=== PATIENT | female | born 1960 | race Caucasian/White ===

== ENCOUNTER 2016-09-22 13:04 | Emergency (ER) ==
[2016-09-22 13:21] VITALS: BP 140/86
--- NOTE | 2016-09-22 14:00 | PROVIDER DOCUMENTATION ---
HPI-EENT General - General Chief Complaint: Sinus Pain Stated Complaint: SINUS Time Seen by Provider: 09/22/16 13:35 Source: patient Allergies/Adverse Reactions: Patient Allergies Allergy/AdvReac Type Severity Reaction Status Date / Time Penicillins Allergy Severe SWELLING Verified 06/02/16 12:15 Home Medications: Buspirone HCl 1 mg PO BID 06/01/12 Clopidogrel [Plavix] 75 mg PO DAILY 06/01/12 Escitalopram [Lexapro] 20 mg PO DAILY 06/01/12 Furosemide [Lasix] 40 mg PO DAILY 06/01/12 Losartan [Cozaar] 50 mg PO DAILY 06/01/12 Oxcarbazepine 600 mg PO BID 06/01/12 Potassium Chloride [Klor-Con M20] 20 meq PO DAILY 06/01/12 Theophylline Anhydrous [Theophylline] 200 mg PO BID 06/01/12 Trazodone [Desyrel] 150 mg PO QHS 06/01/12 Alprazolam [Xanax] 1 mg PO TID 05/06/14 Carisoprodol [Soma] 350 mg PO DAILY PRN PRN 05/06/14 Hydrocodone/Acetaminophen [[place] 5-325 Tablet] 1 each PO Q6H PRN PRN 01/07/15 Carisoprodol 350 mg PO DAILY 04/07/15 - History of Present Illness-EENT General Nature of Presenting Problem: Reports bialteral sinus pain and pressure x 2week ago with sorethroat/. Had sinus congestion x 2 months ago. reports nausea 30 minutes ago. EENT Location: reports: nose, throat Quality of Pain: reports: aching Severity: reports: moderate Onset/Duration: reports: other (2 weeks) Timing: reports: still present Prearrival Treatment: Initiated no prearrival treatment Associated Symptoms: reports: nasal congestion/drainage, sinus infection, sore throat Locality of Occurance: Home Similar Symptoms Previously?: Yes Recently seen or treated by another doctor?: No Review of Systems - Adult - REVIEW OF SYSTEMS - ADULT Constitutional: denies: chills, fever, fatique Eyes: reports: no symptoms reported Ears, Nose, Mouth & Throat: reports: sinus problem, throat pain. denies: ear pain Cardiovascular: denies: chest pain, irregular heart rate, orthopnea Respiratory: reports: no symptoms reported Gastrointestinal: reports: no symptoms reported Genitourinary: reports: no symptoms reported Musculoskeletal: reports: no symptoms reported Integumentary: reports: no symptoms reported Neurological: reports: no symptoms reported Psychiatric: reports: no symptoms reported Endocrine: reports: no symptoms reported Hematologic/Lymphatic: reports: no symptoms reported Allergic/Immunologic: reports: no symptoms reported All Other Systems: Reviewed and Negative Past History - Adult - PAST MEDICAL HISTORY-ADULT Review of Records: reports: Nursing Assessment Review, Medications Reviewed Major Childhood Illnesses: reports: denies history Cardiovascular: reports: CHF, HTN Respiratory: reports: asthma Neurological: reports: CVA, TIA Psychiatric: reports: bipolar - PRIOR SURGERIES/PROCEDURES Surgical/Procedure History: reports: cholecystectomy, BTL - IMMUNIZATION STATUS Childhood Immunizations: See Nurse Assessment Flu Vaccine: See Nurse Assessment - FAMILY HISTORY Family History: reviewed, not pertinent - SOCIAL HISTORY Smoking: other (Former smoker) Substance Use: none/never Physical Exam- EENT - Physical Exam EENT Initial Vital Signs Reviewed: Yes General Appearance: appears well, alert, no apparent distress Eye Exam: bilateral eye: normal inspection, PERRL, EOMI Ear Exam: bilateral ear: auricle normal, canal normal, TM normal Nasal Exam: sinus tenderness (frontal and maxillary) Throat Exam: normal mouth inspection, pharynx normal Respiratory: chest non-tender, lungs clear, normal breath sounds, no pleuratic chest pain, no respiratory distress, no accessory muscle use Cardiovascular: normal peripheral pulses, regular rate, rhythm, no edema, no gallop, no JVD, no murmur Abdominal Exam: normal bowel sounds, non tender, soft, no organomegaly, no pulsatile mass Lymphatic: no adenopathy Back Exam: normal inspection, no CVA tenderness, no vertebral tenderness Extremity: normal range of motion, non-tender, normal gait, normal inspection, no pedal edema, no calf tenderness, normal capillary refill, pelvis stable Integumentary: normal color, normal turgor, warm/dry 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, no motor/sensory deficits Psych/Mental Status: AL, normal mood/affect, normal thought content, normal thought process, oriented x 3 Progress - PLAN OF CARE/RESULTS Progress/Plan/Lab Results: Vital Signs - 24 hr 09/22/16 13:20 Temperature 98.3 F Pulse Rate 90 Respiratory 18 Rate Blood Pressure 140/86 O2 Sat by Pulse 97 Oximetry Departure - Departure Time of Disposition Order: 13:59 DIAGNOSIS: Sinusitis Qualifiers: Sinusitis location: unspecified location Chronicity: acute Recurrence: recurrent Qualified Code(s): J01.91 - Acute recurrent sinusitis, unspecified Disposition: HOME 01 Certified Medical Emergency: Emergent Condition: Stable Additional Instructions: ED Follow Up Instructions: You have been treated by a care provider in the Emergency Department. These instructions are being provided to you so you can have an understanding of how to care for yourself upon discharge. Upon discharge from the Emergency Department, you are responsible for making arrangements for follow-up care by a physician of your choice. Take all prescribed medications as directed. Return to the Emergency Department immediately for any new or worsening symptoms. You may call the Physician Referral phone number at [phone] to obtain a list of Physicians who are taking new patients. Attestation - Scribe Verification/Attestation Scribe:: Boston Harvey Acting as Scribe for:: Moira Wynn Scribe documention review:: This chart was documented by a scribe and accurately reflects the service the provider performed and the decisions made by the provider.
[2016-09-22] MEDS ORDERED: DECADRON IM ONE (14:12)
== END 2016-09-22 14:57 | disposition home or self-care (01) ==
LOC: P.ED 13:04
DX: J01.91 Acute recurrent sinusitis, unspecified (principal); J34.89 Other specified disorders of nose and nasal sinuses; J02.9 Acute pharyngitis, unspecified; R09.81 Nasal congestion; R11.0 Nausea; I50.9 Heart failure, unspecified; I10 Essential (primary) hypertension; F31.9 Bipolar disorder, unspecified; Z79.02 Long term (current) use of antithrombotics/antiplatelets; Z79.899 Other long term (current) drug therapy; Z86.73 Personal history of transient ischemic attack (TIA), and cerebral infarction without residual deficits
CPT/HCPCS: 96372